=== PATIENT | male | born 1955 | race Caucasian/White ===

== ENCOUNTER 2025-05-01 11:41 | Emergency (ER) | payer OTHER ==
[2025-05-01 11:49] VITALS: BP 130/73; PULSE 70; RESP 18; TEMP 97.8; BMI 29.0
[2025-05-01] MEDS ORDERED: FLUORESCEIN NA 1 EA STRIP ONE (12:33)
[2025-05-01] MEDS ORDERED: TETRACAINE 0.5% OPHTH SOLN 2 ML BOTTLE ONE (12:34)
[2025-05-01] MEDS: FLUORESCEIN NA 1 EA STRIP OD ONE (12:35)
[2025-05-01] MEDS: TETRACAINE 0.5% HCL 0.6ML DROPPER.BOTTLE OD ONE (12:35)
== END 2025-05-01 13:14 | disposition home or self-care (01) ==
LOC: JERFT 11:41
DX: S05.01XA Injury of conjunctiva and corneal abrasion without foreign body, right eye, initial encounter (principal); W22.8XXA Striking against or struck by other objects, initial encounter
CPT/HCPCS: 99283-25